=== PATIENT | male | born 1935 | race Caucasian/White ===

== ENCOUNTER 2017-09-16 08:38 | Inpatient (IN) | payer MEDICARE, OTHER ==
[~2017-09-16] VITALS: Ht 180.3 cm; Wt 101.3 kg
[2017-09-16] MEDS ORDERED: SODIUM CHLORIDE 0.9% 1,000 ML IV ONE (08:48)
[2017-09-16] MEDS ORDERED: SODIUM CHLORIDE 0.9% 1,000ML IVBOLUS ONE (09:00)
[2017-09-16 09:21] LABS: BASOPHILS # (AUTO) 0.02 x10^3/uL (0-0.1); BASOPHILS % (AUTO) 0 % (0-1); EOSINOPHILS % (AUTO) 1 % (1-7); LYMPHOCYTES # (AUTO) 1.26 x10^3/uL (1-3.4); LYMPHOCYTES % (AUTO) 17 % (22-44); MD NO; MEAN CORPUSCULAR HEMOGLOBIN 30.1 pg (27.5-34.5); MEAN CORPUSCULAR HGB CONC 33.4 g/dL (33.2-36.2); MEAN CORPUSCULAR VOLUME 90.2 fL (81-97); MEAN PLATELET VOLUME 8.4 fL (7.4-10.4); MONOCYTES # (AUTO) 0.32 x10^3/uL (0.2-0.8); MONOCYTES % (AUTO) 4 % (2-9); NEUTROPHILS # (AUTO) 5.79 x10^3/uL (1.8-6.8); NEUTROPHILS % (AUTO) 77 % (42-75); PLATELET COUNT 195 x10^3/uL (130-400); RED BLOOD COUNT 4.21 x10^6/uL (4.38-5.82); RED CELL DISTRIBUTION WIDTH 13.9 % (9.4-14.8)
[2017-09-16 09:27] LABS: ALANINE AMINOTRANSFERASE 7 U/L (12-78); ALBUMIN 3.5 g/dL (3.4-5.0); ANION GAP 10 mmol/L (5-15); CALCIUM 8.8 mg/dL (8.5-10.1); CHLORIDE 101 mmol/L (98-107)
[2017-09-16 09:32] LABS: ALKALINE PHOSPHATASE 50 U/L (45-117); BILIRUBIN,TOTAL 0.6 mg/dL (0.2-1.0); CREATININE 1.26 mg/dL (0.7-1.3); TOTAL PROTEIN 7.5 g/dL (6.4-8.2)
[2017-09-16 09:36] LABS: MICROSCOPIC AUTO
[2017-09-16 09:45] LABS: CULTURE INDICATED? NO
[2017-09-16] MEDS ORDERED: ASPIRIN 81 MG TABLET CHEW ONE (10:17)
[2017-09-16] MEDS ORDERED: ASPIRIN 325 MG TABLET PO ONE (10:30)
[2017-09-16 11:21] VITALS: BP 153/63
[2017-09-16] MEDS ORDERED: SODIUM CHLORIDE 0.9% 1,000 ML IV SCH (14:05)
[2017-09-16 14:30] VITALS: BP 126/68
[2017-09-16] MEDS ORDERED: BISACODYL 10 MG SUPP PR PRN (14:30)
[2017-09-16] MEDS ORDERED: ENALAPRILAT 1.25 MG/ML, 2ML IVPush PRN (14:30)
[2017-09-16] MEDS ORDERED: DOCUSATE 100 MG CAPSULE PO PRN (14:30)
[2017-09-16] MEDS ORDERED: POLYETHYLENE GLYCOL 17 GM PACKET PO PRN (14:30)
[2017-09-16] MEDS ORDERED: ONDANSETRON 2MG/ML, 2ML IVPush PRN (14:30)
[2017-09-16] MEDS ORDERED: hydrALAzine 20 MG/ML, 1ML IVPush PRN (14:30)
[2017-09-16] MEDS ORDERED: morphine SULFATE 10 MG/ML, 1ML IVPush PRN (14:30)
[2017-09-16] MEDS ORDERED: ACETAMINOPHEN 325 MG TABLET PO PRN (14:30)
[2017-09-16] MEDS: HEPARIN 5,000 UNITS/ML, 1ML SQ SCH ×2 (14:38→21:51)
[2017-09-16 15:14] LABS: FREE T4 (FREE THYROXINE) 1.01 ng/dL (0.76-1.46); THYROID STIMULATING HORMONE 0.793 mIU/L (0.358-3.740)
[2017-09-16 15:22] LABS: HEMOGLOBIN A1C 6.3 % (4.2-6.3)
[2017-09-16] MEDS ORDERED: ROPI0.2537 PO (15:55)
[2017-09-16] MEDS ORDERED: CLOP75TA PO (15:55)
[2017-09-16] MEDS ORDERED: ATOR40TA PO (15:55)
[2017-09-16] MEDS ORDERED: [UNRECOGNIZED DRUG - CODE] PO (15:55)
[2017-09-16] MEDS ORDERED: LEVO25TA4 PO (15:55)
[2017-09-16] MEDS ORDERED: PARO30TA3 PO (15:55)
[2017-09-16] MEDS ORDERED: DEXT1DRO6 EACHEYE (15:55)
[2017-09-16] MEDS ORDERED: ALLO100T30 PO (15:55)
[2017-09-16] MEDS ORDERED: CARB1TAB47 PO (15:55)
[2017-09-16] MEDS ORDERED: FURO40TA6 PO (15:55)
[2017-09-16] MEDS ORDERED: INDA2.5T PO (15:55)
[2017-09-16] MEDS ORDERED: METO-282 PO (15:55)
[2017-09-16] MEDS ORDERED: CARB1TAB44 PO (15:55)
[2017-09-16] MEDS ORDERED: DEXTRAN EACHEYE PRN ×2 (17:00)
[2017-09-16] MEDS ORDERED: HYPROMELLOSE EACHEYE PRN ×2 (17:00)
[2017-09-16 17:40] LABS: TROPONIN I 0.089 ng/mL (0.000-0.045)
[2017-09-16 20:30] VITALS: BP 133/62
[2017-09-16] MEDS ORDERED: ROPINIROLE 0.25MG TABLET PO SCH (21:00)
[2017-09-16] MEDS ORDERED: CARBIDOPA/LEVODOPA 25 MG/100 MG TABLET PO SCH (21:00)
[2017-09-16] MEDS ORDERED: ATORVASTATIN 40 MG TABLET PO SCH (21:00)
[2017-09-16] MEDS ORDERED: CARBIDOPA/LEVODOPA CR 50 MG/200 MG TABLET PO SCH (21:00)
[2017-09-16] MEDS ORDERED: DIPHENHYDRAMINE 25 MG CAPSULE PO PRN (21:30)
[2017-09-16 23:35] LABS: TROPONIN I 0.093 ng/mL (0.000-0.045)
[2017-09-17 00:54] VITALS: BP 109/58
[2017-09-17 05:13] LABS: BASOPHILS # (AUTO) 0.04 x10^3/uL (0-0.1); BASOPHILS % (AUTO) 0 % (0-1); EOSINOPHILS % (AUTO) 2 % (1-7); LYMPHOCYTES # (AUTO) 2.68 x10^3/uL (1-3.4); LYMPHOCYTES % (AUTO) 32 % (22-44); MD NO; MEAN CORPUSCULAR HEMOGLOBIN 30.3 pg (27.5-34.5); MEAN CORPUSCULAR HGB CONC 33.7 g/dL (33.2-36.2); MEAN CORPUSCULAR VOLUME 89.8 fL (81-97); MEAN PLATELET VOLUME 8.5 fL (7.4-10.4); MONOCYTES # (AUTO) 0.54 x10^3/uL (0.2-0.8); MONOCYTES % (AUTO) 7 % (2-9); NEUTROPHILS # (AUTO) 4.82 x10^3/uL (1.8-6.8); NEUTROPHILS % (AUTO) 58 % (42-75); PLATELET COUNT 176 x10^3/uL (130-400); RED BLOOD COUNT 3.64 x10^6/uL (4.38-5.82); RED CELL DISTRIBUTION WIDTH 13.9 % (9.4-14.8)
[2017-09-17 05:22] LABS: ALBUMIN 2.8 g/dL (3.4-5.0); ANION GAP 7 mmol/L (5-15); CHLORIDE 106 mmol/L (98-107)
[2017-09-17 05:26] LABS: ALANINE AMINOTRANSFERASE 6 U/L (12-78); ALKALINE PHOSPHATASE 41 U/L (45-117); BILIRUBIN,TOTAL 0.5 mg/dL (0.2-1.0); CHOL/HDL RATIO 2.2; CHOLESTEROL, TOTAL 95 mg/dL (140-239); CREATININE 1.14 mg/dL (0.7-1.3); HDL CHOL % 46 % (26-37); HDL CHOLESTEROL (DIRECT) 44 mg/dL (40-60); LDL CHOLESTEROL,CALCULATED 30 mg/dL (54-169); LDL/HDL RATIO 0.7 (0.5-3.0); TRIGLYCERIDES 104 mg/dL (50-200); VLDL CHOLESTEROL 21 mg/dL (0-25)
[2017-09-17] MEDS ORDERED: ROPINIROLE 0.25MG TABLET PO SCH (06:00)
[2017-09-17] MEDS ORDERED: CARBIDOPA/LEVODOPA 25 MG/100 MG TABLET PO SCH (06:00)
[2017-09-17] MEDS: HEPARIN 5,000 UNITS/ML, 1ML SQ SCH (06:26)
[2017-09-17] MEDS ORDERED: LEVOTHYROXINE 25 MCG TABLET PO SCH (07:30)
[2017-09-17 08:17] VITALS: BP 138/70
[2017-09-17] MEDS ORDERED: INDAPAMIDE 2.5 MG TABLET PO SCH (09:00)
[2017-09-17] MEDS ORDERED: PAROXETINE 10 MG TABLET PO SCH (09:00)
[2017-09-17] MEDS ORDERED: CLOPIDOGREL 75 MG TABLET PO SCH (09:00)
[2017-09-17] MEDS ORDERED: ALLOPURINOL 100 MG TABLET PO SCH (09:00)
== END 2017-09-17 10:00 | disposition home or self-care (01) | DRG 310 ==
LOC: ED 09:50 → 5SO 10:15 → DCLOUNGE 09-17 09:52
PROVIDERS: ADMIT Family Medicine; ATTEND Family Medicine
DX: R00.1 Bradycardia, unspecified (principal); G20 Parkinson's disease; D64.9 Anemia, unspecified; E78.4 Other hyperlipidemia; F17.210 Nicotine dependence, cigarettes, uncomplicated; T44.7X5A Adverse effect of beta-adrenoreceptor antagonists, initial encounter; I10 Essential (primary) hypertension; I25.10 Atherosclerotic heart disease of native coronary artery without angina pectoris; Z95.5 Presence of coronary angioplasty implant and graft; Z79.899 Other long term (current) drug therapy; Y92.89 Other specified places as the place of occurrence of the external cause
CPT/HCPCS: 36415; 71045; 80053; 80061; 81001; 83036; 83690; 83735; 84439; 84443; 84484; 85025; 87040; 93005; 96360; 96361; J1644; J7030; Q0163

== ENCOUNTER 2021-02-27 01:21 | Inpatient (IN) | payer MEDICARE, MEDICAID ==
[~2021-02-27] VITALS: Ht 182.9 cm; Wt 98.4 kg
[~2021-02-27 01:21] MED LIST: ALLO100T30 PO; ATOR40TA PO; CARB1TAB44 PO; CARB1TAB47 PO; CLOP75TA PO; DEXT1DRO6 EACHEYE; FURO40TA6 PO; INDA2.5T PO; LEVO25TA4 PO; METO-282 PO; PARO30TA3 PO; ROPI0.254 PO; [UNRECOGNIZED DRUG - CODE] PO
[2021-02-27] MEDS ORDERED: ASPIRIN 81 MG TABLET CHEW PO ONE (01:30)
--- NOTE | 2021-02-27 01:35 | NUR ---
brought in by corona from home. c/o chest pain described as ache / epigastric area x 1 hr. denies SOB. states it feels like when he had a [facility]. Aspirin 324 mg given [employer]
--- NOTE | 2021-02-27 01:48 | NUR ---
assessment made. seen by ERP. EKG and X ray done.
--- NOTE | 2021-02-27 02:11 | NUR ---
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
[2021-02-27 02:26] LABS: BASOPHILS % (AUTO) 1 % (0-1); EOSINOPHILS % (AUTO) 3 % (1-7); LYMPHOCYTES % (AUTO) 23 % (22-44); MEAN CORPUSCULAR HEMOGLOBIN 30.2 pg (27.5-34.5); MEAN CORPUSCULAR HGB CONC 33.4 g/dL (33.2-36.2); MEAN PLATELET VOLUME 7.6 fL (7.4-10.4); MONOCYTES % (AUTO) 16 % (2-9); NEUTROPHILS % (AUTO) 58 % (42-75); PLATELET COUNT 193 x10^3/uL (130-400); RED BLOOD COUNT 3.99 x10^6/uL (4.38-5.82); RED CELL DISTRIBUTION WIDTH 13.7 % (9.4-14.8)
[2021-02-27 02:38] LABS: ALBUMIN 2.6 g/dL (3.4-5.0); ANION GAP 5 mmol/L (5-15); CALCIUM 8.5 mg/dL (8.5-10.1); CHLORIDE 106 mmol/L (98-107); CREATININE 0.98 mg/dL (0.7-1.3)
--- NOTE | 2021-02-27 02:40 | NUR ---
patient watching TV. denies pain at this time.
[2021-02-27 02:44] LABS: TROPONIN I 0.154 ng/mL (0.000-0.045)
--- NOTE | 2021-02-27 02:55 | NUR ---
lab called for critical lab - troponin 0.154. aware.
[2021-02-27] MEDS ORDERED: MORPHINE SULFATE 4 MG/ML, 1ML IVPush PRN (03:30)
[2021-02-27] MEDS ORDERED: ONDANSETRON 2MG/ML, 2ML IVPush PRN ×2 (03:30→04:30)
--- NOTE | 2021-02-27 04:12 | NUR ---
Dr. Guzman ( hospitalist ) at bedside for evaluation and to write orders.
[2021-02-27] MEDS ORDERED: ENALAPRILAT 1.25 MG/ML, 2ML IVPush PRN (04:30)
[2021-02-27] MEDS ORDERED: ACETAMINOPHEN 325 MG TABLET PO PRN (04:30)
[2021-02-27] MEDS ORDERED: morphine SULFATE 10 MG/ML, 1ML IV PRN (04:30)
--- NOTE | 2021-02-27 05:05 | NUR ---
report to KATELYN Santizo
[2021-02-27] MEDS ORDERED: SODIUM CHLORIDE 0.9% 1,000 ML IV SCH (06:00)
[2021-02-27] MEDS ORDERED: ASPIRIN 325 MG TABLET EC PO SCH (06:00)
--- NOTE | 2021-02-27 06:44 | NUR ---
REPORT GIVEN TO KAETLYN BRYAN.
--- NOTE | 2021-02-27 06:44 | NUR ---
report from KATELYN Santizo
--- NOTE | 2021-02-27 06:51 | NUR ---
PT RESTING ON GURNEY WATCHING TV, NADN/VSS. PT UPDATED ON POC. CALL LIGHT WITHIN REACH, BED IN LOWEST POSITION, BED RAILS UP X2. PT STATES NO NEEDS AT THIS TIME. WCTM
[2021-02-27 07:00] LABS: CHOL/HDL RATIO 2.2; CHOLESTEROL, TOTAL 93 mg/dL (140-239); HDL CHOL % 46 % (26-37); HDL CHOLESTEROL (DIRECT) 43 mg/dL (40-60); LDL CHOLESTEROL,CALCULATED 36 mg/dL (54-169); LDL/HDL RATIO 0.8 (0.5-3.0); TRIGLYCERIDES 70 mg/dL (50-200); VLDL CHOLESTEROL 14 mg/dL (0-25)
[2021-02-27 07:07] LABS: TROPONIN I 0.174 ng/mL (0.000-0.045)
[2021-02-27 07:19] LABS: ALBUMIN 2.5 g/dL (3.4-5.0); BILIRUBIN, DIRECT 0.1 mg/dL (0.1-0.2); BILIRUBIN,INDIRECT 0.2 mg/dL (0.0-2.0); BILIRUBIN,TOTAL 0.3 mg/dL (0.2-1.0); TOTAL PROTEIN 6.5 g/dL (6.4-8.2)
--- NOTE | 2021-02-27 07:34 | NUR ---
ROBERT PATE (DAUGHTER): [phone]
[2021-02-27] MEDS ORDERED: HEPARIN 25,000 UNITS/250ML PMX 250 ML ONE (08:01)
--- NOTE | 2021-02-27 08:03 | NUR ---
LAB & [facility] AT
[2021-02-27] MEDS ORDERED: HEPARIN 5,000 UNITS/ML, 1ML ONE (08:28)
[2021-02-27] MEDS ORDERED: HEPARIN 5,000 UNITS/ML, 1ML IV ONE (08:30)
[2021-02-27] MEDS ORDERED: HEPARIN 25,000 UNITS/250ML PMX 250 ML IV PRN (08:30)
[2021-02-27] MEDS ORDERED: HEPARIN 5,000 UNITS/ML, 1ML IV PRN (08:30)
[2021-02-27] MEDS ORDERED: ARTIFICIAL TEARS 15 DROP/ML BOTTLE EACHEYE PRN (08:30)
[2021-02-27] MEDS ORDERED: REGADENOSON 0.4 MG/5 ML SYRINGE ONE (08:39)
[2021-02-27] MEDS: PAROXETINE 10 MG TABLET PO SCH (08:55)
[2021-02-27] MEDS: AMOXICILLIN/CLAV 500-125MG TABLET PO SCH ×2 (08:55→20:18)
[2021-02-27] MEDS: ALLOPURINOL 100 MG TABLET PO SCH (08:56)
[2021-02-27] MEDS: INDAPAMIDE 2.5 MG TABLET PO SCH (08:56)
--- NOTE | 2021-02-27 08:58 | NUR ---
PT SITTING ON GURNEY, WATCHING TV. PT MEDICATED PER EMAR. NADN/VSS. CALL LIGHT WITHIN REACH. PT STATES NO NEEDS AT THIS TIME
[2021-02-27] MEDS: LEVOTHYROXINE 25 MCG TABLET PO SCH (09:25)
[2021-02-27] MEDS ORDERED: FUROSEMIDE 40 MG TABLET ONE (09:29)
[2021-02-27] MEDS ORDERED: CLOPIDOGREL 75 MG TABLET ONE (09:29)
[2021-02-27] MEDS: FUROSEMIDE 40 MG TABLET PO SCH (09:31)
[2021-02-27] MEDS: CLOPIDOGREL 75 MG TABLET PO SCH (09:31)
[2021-02-27 10:23] LABS: TROPONIN I 0.188 ng/mL (0.000-0.045)
--- NOTE | 2021-02-27 10:39 | NUR ---
Pt to be admitted to [facility], room 507. Report called to CARLY.
[2021-02-27] MEDS: CARBIDOPA/LEVODOPA 25 MG/100 MG TABLET PO SCH ×3 (11:52→20:18)
[2021-02-27] MEDS: LISINOPRIL 10 MG TABLET PO SCH ×2 (11:52→20:18)
[2021-02-27] MEDS: ROPINIROLE 0.25MG TABLET PO SCH ×3 (11:52→20:17)
[2021-02-27 12:05] VITALS: BP 153/75
[2021-02-27] MEDS ORDERED: FENTANYL PF 100 MCG/2ML ONE (13:57)
[2021-02-27] MEDS ORDERED: TICAGRELOR 90 MG TABLET ONE (13:57)
[2021-02-27] MEDS ORDERED: HEPARIN 1,000 UNITS/ML, 10ML ONE (13:58)
[2021-02-27] MEDS ORDERED: VERAPAMIL 2.5 MG/ML, 2ML ONE (13:58)
[2021-02-27] MEDS ORDERED: BIVALIRUDIN 250 MG ONE (13:58)
[2021-02-27] MEDS ORDERED: MIDAZOLAM 1 MG/ML, 2ML ONE (13:58)
[2021-02-27] MEDS ORDERED: LIDOCAINE-MPF 1%, 5ML ONE (13:58)
[2021-02-27] MEDS: SODIUM CHLORIDE 0.9% 1,000 ML IV SCH ×2 (15:00→23:06)
[2021-02-27 18:08] LABS: TROPONIN I 0.169 ng/mL (0.000-0.045)
[2021-02-27 18:33] VITALS: BP 115/63
[2021-02-27 20:16] VITALS: BP 128/70
[2021-02-27] MEDS ORDERED: CARBIDOPA/LEVODOPA CR 50 MG/200 MG TABLET PO SCH (21:00)
[2021-02-27] MEDS ORDERED: ATORVASTATIN 40 MG TABLET PO SCH (21:00)
[2021-02-28 01:19] VITALS: BP 124/69
[2021-02-28] MEDS: SODIUM CHLORIDE 0.9% 1,000 ML IV SCH (06:00)
[2021-02-28] MEDS ORDERED: ASPIRIN 81 MG TABLET EC PO SCH (06:00)
[2021-02-28] MEDS: ROPINIROLE 0.25MG TABLET PO SCH ×2 (06:04→10:51)
[2021-02-28] MEDS: LEVOTHYROXINE 25 MCG TABLET PO SCH (06:04)
[2021-02-28] MEDS: CARBIDOPA/LEVODOPA 25 MG/100 MG TABLET PO SCH ×2 (06:04→10:51)
[2021-02-28 07:02] VITALS: BP 121/72
[2021-02-28] MEDS: PAROXETINE 10 MG TABLET PO SCH (08:32)
[2021-02-28] MEDS: INDAPAMIDE 2.5 MG TABLET PO SCH (08:32)
[2021-02-28] MEDS: LISINOPRIL 10 MG TABLET PO SCH (08:33)
[2021-02-28] MEDS: FUROSEMIDE 40 MG TABLET PO SCH (08:33)
[2021-02-28] MEDS: ALLOPURINOL 100 MG TABLET PO SCH (08:33)
[2021-02-28] MEDS: CLOPIDOGREL 75 MG TABLET PO SCH (08:33)
[2021-02-28] MEDS: AMOXICILLIN/CLAV 500-125MG TABLET PO SCH (08:33)
[2021-02-28] MEDS ORDERED: CARV3.1212 PO (11:55)
[2021-02-28 13:20] VITALS: BP 135/79
[2021-02-28] MEDS ORDERED: CARVEDILOL 3.125 MG TABLET PO SCH (18:00)
== END 2021-02-28 15:49 | disposition home or self-care (01) | DRG 282 ==
LOC: ED 01:30 → EDIP 03:08 → 5SO 11:10
PROVIDERS: ADMIT Family Medicine; ATTEND Family Medicine
PROC: 4A023N7 Measurement of Cardiac Sampling and Pressure, Left Heart, Percutaneous Approach (ICD-10-PCS; principal; 2021-02-27)
PROC: B2111ZZ Fluoroscopy of Multiple Coronary Arteries using Low Osmolar Contrast (ICD-10-PCS; 2021-02-27)
DX: I21.4 Non-ST elevation (NSTEMI) myocardial infarction (principal); G20 Parkinson's disease; D64.9 Anemia, unspecified; E03.9 Hypothyroidism, unspecified; E78.5 Hyperlipidemia, unspecified; F32.9 Major depressive disorder, single episode, unspecified; I07.1 Rheumatic tricuspid insufficiency; I10 Essential (primary) hypertension; I27.20 Pulmonary hypertension, unspecified; I35.0 Nonrheumatic aortic (valve) stenosis; K04.7 Periapical abscess without sinus; I25.10 Atherosclerotic heart disease of native coronary artery without angina pectoris; M10.9 Gout, unspecified; Z87.891 Personal history of nicotine dependence; I25.2 Old myocardial infarction; Z95.5 Presence of coronary angioplasty implant and graft; Z79.899 Other long term (current) drug therapy
CPT/HCPCS: 36415; 71045; 78452; 80048; 80061; 80076; 82040; 83690; 84443; 84484; 85025; 85520; 93005; 93306; 93458; 96374; 99156; C1769; C1894; G0378; J0583; J1644; J2250; J2785; J3010; A9502; Q9967